=== PATIENT | male | born 1965 | race Caucasian/White ===

== ENCOUNTER 2018-06-06 18:16 | Emergency (ER) | payer OTHER ==
[~2018-06-06] VITALS: Ht 185.4 cm; Wt 102.1 kg
[2018-06-06] MEDS ORDERED: REMERON30 MG PO (18:32)
[2018-06-06] MEDS ORDERED: PREZISTA800 MG PO (18:32)
[2018-06-06] MEDS ORDERED: LIPITOR20 MG PO (18:32)
[2018-06-06] MEDS ORDERED: ZANTAC300 MG PO (18:33)
[2018-06-06] MEDS ORDERED: ISENTRESS400 MG PO (18:33)
[2018-06-06] MEDS ORDERED: NORVIR100 M1 PO (18:33)
== END 2018-06-06 21:04 | disposition home or self-care (01) ==
LOC: ED 18:16
DX: R10.84 Generalized abdominal pain (principal); Z87.891 Personal history of nicotine dependence; Z88.5 Allergy status to narcotic agent; Z79.899 Other long term (current) drug therapy
CPT/HCPCS: 80053; 85025; 85610; 85730; 86850; 86900; 86901; 99284

== ENCOUNTER 2019-08-13 12:15 | Day surgery (SDC) | payer OTHER ==
[~2019-08-13 12:15] MED LIST: ABRAXANE100 MG IV; BACLOFEN10 MG PO; CHLORPROMAZINE25 MG PO; DICLOXACILLIN250 MG PO; DOCUSATE CALCI240 MG PO; DOCUSATE SODIU250 MG PO; DULCOLAX10 MG PR; ENSURE HIGH PR237 ML PO; EUCERIN CREME454 GM TOP; FENTANYL1 EAC5 TD; FUROSEMIDE20 MG PO; HYDROXYZINE PAM25 MG PO; IBUPROFEN600 MG PO; ISENTRESS400 MG PO; LACTULOSE10 GM/15 M PO; LIPITOR20 MG PO; MAGNESIUM400 M1 PO; MAPAP325 MG PO; MIRTAZAPINE15 MG PO; MORPHINE SU4 MG/1 M2 INJ; MS CONTIN60 MG PO; NORVIR100 M1 PO; OMEPRAZOLE20 MG PO; ONDANSETRO8 MG/50 M2 IV; PREDNISONE20 MG PO; PREZISTA800 MG PO; REMERON15 MG PO; REMERON30 MG PO; STROMECTOL3 MG PO; ZANTAC300 MG PO; ZOFRAN ODT4 MG PO; [UNRECOGNIZED DRUG - CODE] TOP; [UNRECOGNIZED DRUG - OTHER] IV
--- NOTE | 2019-08-13 12:25 | NUR ---
PT ARRIVES TO DS VIA AMBULANCE STRETCHER/EMT'S AND IS ACCOMPANIED BY [facility] OFFICERS.
--- NOTE | 2019-08-14 09:42 | OR ---
[facility] [address], [place] [address] Signed DATE OF OPERATION: 08/13/2019 SURGEON: Washington Felix MD PREOPERATIVE DIAGNOSES: 1. Recurrent very symptomatic ascites. 2. 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 POSTOPERATIVE DIAGNOSES: 1. Recurrent very symptomatic ascites. 2. 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 PROCEDURE: Palliative paracentesis (large volume) 6.5 L. ANESTHESIA: 1% lidocaine. INDICATIONS: This 53-year-old dark-skinned man is a prisoner at [facility] and a patient of Dr. Rakesh Siegel. He is known to have end-stage liver failure related to cholangiocarcinoma. He has undergone chemotherapy in the past and Port-A-Cath placement by me. About a week ago or so, he underwent emergent paracentesis for very symptomatic ascites. 5 L were withdrawn at that time providing marked relief. He is noted to have reaccumulation of the ascites as would be predicted and enquiry was made by Dr. Siegel on Tuesday (today is Tuesday) regarding a plan for additional paracentesis. He is admitted at this time to undergo paracentesis for symptomatic control with also consideration for placement of a PleurX catheter to allow for more prompt and intermittent palliative paracentesis at the assisted. FINDINGS: Yellow ascites fluid was noted. There was no sign of purulence. Decompression of the abdomen with 6.5 L of fluid was undertaken allowing for a soft abdominal wall and much improvement of his symptoms. Additional paracentesis could be undertaken, but it would likely compromise his hemodynamics status and was avoided. I discussed with him the concept of a PleurX catheter for abdominal ascites management. He understands that and would be interested in proceeding. DESCRIPTION OF PROCEDURE: Electronically Signed By: WASHINGTON FELIX MD 08/14/19 0942 PATIENT NAME: GUME DAVENPORT OPERATIVE REPORT DATE OF : 65 REPORT #: [id number] PHYSICIAN: WASHINGTON FELIX MD PCP: RAKESH SIEGEL MD REPORT IS CONFIDENTIAL AND NOT TO BE RELEASED WITHOUT AUTHORIZATION [facility] [address], [place] [address] Signed In semi recumbent position in the Day Surgery area, the right abdominal wall was prepared with a chlorhexidine solution and draped sterilely. Previous horizontal mattress suture for security of his previous paracentesis site was noted. 1% lidocaine was injected locally and the abdomen entered showing clear yellowish fluid. Using a safety centesis kit with a blunt tip, peritoneal cavity was entered without problem and a pigtail catheter advanced over the implement. This was then attached to Vacutainer bottle. Drainage of 6.5 L of odilon ascites fluid was undertaken without problem. Marked improvement of his abdominal distention was noted and he felt symptomatically better. Catheter was removed and the site was once again secured with a 2-0 nylon suture and Band-Aid applied. PLAN: A PleurX catheter kit is available to me to use in the near future if feasible and accessible to Dr. Siegel at [facility]. We will make arrangements to do that this week. This will likely simplify his overall palliative care management allowing for episodic paracentesis as needed without the burden of travel and so on. Washington Felix MD JM/MODL /[id number] cc: Rakesh Siegel MD Copies: RAKESH SIEGEL MD ~ Electronically Signed By: WASHINGTON FELIX MD 08/14/19 0942 PATIENT NAME: GUME DAVENPORT OPERATIVE REPORT DATE OF : 65 REPORT #: [id number] PHYSICIAN: WASHINGTON FELIX MD PCP: RAKESH SIEGEL MD REPORT IS CONFIDENTIAL AND NOT TO BE RELEASED WITHOUT AUTHORIZATION
== END 2019-08-13 15:40 | disposition home or self-care (01) ==
LOC: DS 12:15 → OPS 12:15 → DS 13:00 → OPS 15:40
PROC: 0W9G3ZZ Drainage of Peritoneal Cavity, Percutaneous Approach (ICD-10-PCS; principal; 2019-08-13)
DX: R18.8 Other ascites (principal); C22.1 Intrahepatic bile duct carcinoma; K72.90 Hepatic failure, unspecified without coma
CPT/HCPCS: 49082